=== PATIENT | female | born 1995 | race African-American/Black ===

== ENCOUNTER 2024-08-30 18:19 | Inpatient (IN) | payer OTHER, MEDICAID ==
[~2024-08-30] VITALS: Ht 154.9 cm; Wt 53.5 kg
--- NOTE | 2024-08-30 18:44 | ED.PDOC ---
History of Present Illness HPI Comments 28-year-old female brought in by EMS presents with an ALOC. Per EMS, patient was at a clinic when staff witnessed patient having "seizure-activity" and became altered. EMS reports that patient on arrival was altered and had carpal-pedal spasms. Patients initial blood glucose for EMS was 49 and patient was given 25g of Dextrose. Patients blood sugar on arrival is 156. Patient is A/Ox1. Chief Complaint: ALOC Time Seen by MD: 18:25 Reviewed Notes: Medications, Allergies Allergies: Coded Allergies: NO KNOWN ALLERGIES (Unverified , 08/30/24) Information Source: Emergency Med Personnel Mode of Arrival: EMS Severity: Moderate Timing: Hours Duration: Since onset Prehospital treatment: None Past Medical History PAST MEDICAL HISTORY: Denies Surgical History: Denies all surgeries TOP SPOTTER History: Denies all TOP SPOTTER Hx Family History Family History: Reviewed,noncontributory to illness Social History Smoker: Non-Smoker Alcohol: Denies ETOH Use Drugs: Denies Drug Use Lives In: Home Constitutional: denies: chills, diaphoresis, fatigue, fever, malaise, sweats, weakness, others EENTM: denies: blurred vision, double vision, ear bleeding, ear discharge, ear drainage, ear pain, ear ringing, eye pain, eye redness, hearing loss, mouth pain, mouth swelling, nasal discharge, nose bleeding, nose congestion, nose pain, photophobia, tearing, throat pain, throat swelling, voice changes, others Respiratory: denies: cough, hemoptysis, orthopnea, SOB at rest, shortness of breath, SOB with excertion, stridor, wheezing, others Cardiovascular: denies: chest pain, dizzy spells, diaphoresis, Dyspnea on exertion, edema, irregular heart beat, left arm pain, lightheadedness, palpitations, PND, syncope, others Gastrointestinal: denies: abdomen distended, abdominal pain, blood streaked bowels, constipated, diarrhea, dysphagia, difficulty swallowing, hematemesis, melena, nausea, poor appetite, poor fluid intake, rectal bleeding, rectal pain, vomiting, others Genitourinary: denies: abnormal vagina bleeding, burning, dyspareunia, dysuria, flank pain, frequency, hematuria, incontinence, pain, , vagina discharge, urgency, others Neurological: denies: dizziness, fainting, headache, left sided numbness, left sided weakness, numbness, paresthesia, pre-existing deficit, right sided n umbness, right sided weakness, seizure, speech problems, tingling, tremors, weakness, others Musculoskeletal: denies: back pain, gout, joint pain, joint swelling, muscle pain, muscle stiffness, neck pain, others Integumetry: denies: bruises, change in color, change in hair/nails, dryness, laceration, lesions, lumps, rash, wounds, others Allergic/Immunocompromised: denies: Difficulty Healing, Frequent Infections, Hives, Itching, others Hematologic/Lymphatic: denies: anemia, blood clots, easy bleeding, easy bruising, swollen glands, others Endocrine: denies: excessive hunger, excessive sweating, excessive thirst, excessive urination, flushing, intolerance to cold, intolerance to heat, unexplained weight gain, unexplained weight loss, others Psychiatric: denies: anxiety, bipolar disorder, depression, hopeless, panic disorder, schizophrenia, sleepless, suicidal, others Unable to Obtain due to: Altered Mental Status All Other Systems: Reviewed and Negative Physical Exam General Appearance: Moderate Distress, Normal HEENT: Normal ENT Inspection, Pharynx Normal, TMs Normal Neck: Full Range of Motion, Non-Tender, Normal, Normal Inspection Respiratory: Chest Non-Tender, Lungs Clear, No Accessory Muscle Use, No Respiratory Distress, Normal Breath Sounds Cardiovascular: No Edema, No JVD, No Murmur, No Gallop, Normal Peripheral Pulses, Regular Rate/Rhythm Breast Exam: Deferred Gastrointestinal: No Organomegaly, Non Tender, No Pulsatile Mass, Normal Bowel Sounds, Soft Genitalia: Deferred Pelvic: Deferred Rectal: Deferred Extremities: No calf tenderness, Normal capillary refill, Normal inspection, Normal range of motion, Non-tender, No pedal edema Musculoskeletal : Apperance: Normal Neurologic: Alert (Postictal), choke reamer II-XII nml as Tested, No Motor Deficits, Normal Affect, Normal Mood, No Sensory Deficits Cerebellar Function: Normal Reflexes: Normal Skin: Dry, Normal Color, Warm Lymphatic: No Adenopathy Was a procedure done? Was a procedure done?: No Differential Dx Considerations may include: Seizure disorder hypoglycemia electrolyte imbalance X-Ray, Labs, Meds, VS Vital Signs Date Time Temp Pulse Resp B/P (MAP) Pulse Ox O2 Delivery O2 Flow Rate FiO2 12/17/24 19:57 102 08/30/24 19:30 Room Air* 0 21 08/30/24 18:46 97.5 102 16 139/89 (106) 100 97.5 08/30/24 18:32 97.3 100 18 147/106 (120) 95 Lab Test 08/30/24 20:28 08/30/24 19:40 08/30/24 19:36 Range/Units POC Glucose 94 70-106 mg/dl White Blood Count 8.0 4.4-10.8 10^3/uL Red Blood Count 4.67 4.0-5.20 10^6/uL Hemoglobin 13.9 12.2-16.2 g/dL Hematocrit 41.9 36.0-46.0 % Mean Corpuscular Volume 89.7 80.0-100.0 fL Mean Corpuscular Hemoglobin 29.8 28.0-32.0 pg Mean Corpuscular Hemoglobin Concent 33.2 32.0-36.0 g/dL Red Cell Distribution Width 13.7 11.8-14.3 % Platelet Count 182 140-450 10^3/uL Mean Platelet Volume 11.0 H 6.9-10.8 fL Neutrophils (%) (Auto) 72.0 37.0-80.0 % Lymphocytes (%) (Auto) 19.0 10.0-50.0 % Monocytes (%) (Auto) 7.9 0.0-12.0 % Eosinophils (%) (Auto) 0.6 0.0-7.0 % Basophils (%) (Auto) 0.5 0.0-2.0 % Neutrophils # (Auto) 5.8 1.6-8.6 10 ^3/uL Lymphocytes # (Auto) 1.5 0.4-5.4 10 ^3/uL Monocytes # (Auto) 0.6 0-1.3 10 ^3/uL Eosinophils # (Auto) 0.1 0-0.8 10 ^3/uL Basophils # (Auto) 0 0-0.2 10 ^3/uL Nucleated Red Blood Cells 0.1 % Sodium Level 141 136-145 mmol/L Potassium Level 3.1 L 3.5-5.1 mmol/L Chloride Level 108 H 98-107 mmol/L Carbon Dioxide Level 21 20-31 mmol/L Anion Gap 12 5-15 Blood Urea Nitrogen 10 9-23 mg/dL Creatinine 0.99 0.550-1.02 mg/dL Glomerular Filtration Rate Calc 81 >90 mL/min BUN/Creatinine Ratio 10.1 10.0-20.0 Serum Glucose 153 H 74-106 mg/dL Calcium Level 9.9 8.7-10.4 mg/dL Total Bilirubin 0.5 0.2-1.0 mg/dL Aspartate Amino Transferase (AST) 13 13-40 U/L Alanine Aminotransferase (ALT) < 9 7-40 U/L Alkaline Phosphatase 61 46-116 U/L Total Protein 7.2 5.7-8.2 g/dL Albumin 4.5 3.2-4.8 g/dL Beta HCG, Quantitative 1.8 1.5-4.2 mIU/mL Plasma/Serum Blood Alcohol 7.9 <10 mg/dL Urine Color Colorless Yellow Urine Clarity Clear Clear Urine pH 6.5 5.0-9.0 Urine Specific [place] 1.007 1.001-1.035 Urine Protein Negative Negative Urine Ketones Negative Negative Urine Blood Negative Negative /uL Urine Nitrite Negative Negative Urine Bilirubin Negative Negative Urine Urobilinogen Normal Negative mg/dL Urine Leukocyte Esterase Trace Negative /uL Urine RBC <1 0 - 4 /hpf Urine WBC 1 0 - 5 /hpf Urine Squamous Epithelial Cells Few <5 /hpf Urine Bacteria Few H None Seen /hpf Urine Glucose 3+ H Normal mg/dL Urine Opiates Screen Neg NEGATIVE Urine Fentanyl Screen Neg NEGATIVE Urine Barbiturates Screen Neg NEGATIVE Urine Phencyclidine Screen Neg NEGATIVE Urine Amphetamines Screen Neg NEGATIVE Urine Benzodiazepines Screen Neg NEGATIVE Urine Cocaine Screen Neg NEGATIVE Urine Cannabinoids Screen Neg NEGATIVE CBC is normal. Last blood sugar is 94. UA is normal urine drug screen is normal. The patient his CT is pending. The patient will be admitted to the hospitalist for further evaluation and care. Time of 1ST Reevaluation: 18:55 Reevaluation 1ST: Unchanged Patient Education/Counseling: Diagnosis, Treatment, Prognosis Family Education/Counseling: No Family Present Departure 1 Departure Time of Disposition: 21:05 Impression: Primary Impression: Altered mental status Qualified Codes: R41.82 - Altered mental status, unspecified Additional Impressions: Metabolic encephalopathy Hypoglycemia Seizure Disposition: ADMITTED INPATIENT Admit to: Tele Condition: Guarded Critical Care Note Critical Care Time?: Yes (45 min-critical care time only) Stability Stability form required: No I personally scribed for STEPHANIE KHAN MD ([email or web address]) on 08/30/24 at 18:44. Electronically submitted by Chandra Ronquillo ([email or web address]). STEPHANIE KHAN MD Aug 30, 2024 18:44
[2024-08-30 20:03] LABS: Basophils # (auto) 0 10 ^3/uL (0-0.2); Basophils % (auto) 0.5 % (0.0-2.0); Eosinophils # (auto) 0.1 10 ^3/uL (0-0.8); Eosinophils % (auto) 0.6 % (0.0-7.0); Hematocrit 41.9 % (36.0-46.0); Hemoglobin 13.9 g/dL (12.2-16.2); Lymphocytes # (auto) 1.5 10 ^3/uL (0.4-5.4); Mean Corpuscular Hemoglobin 29.8 pg (28.0-32.0); Mean Corpuscular Hgb Conc. 33.2 g/dL (32.0-36.0); Mean Corpuscular Volume 89.7 fL (80.0-100.0); Monocytes # (auto) 0.6 10 ^3/uL (0-1.3); Monocytes % (auto) 7.9 % (0.0-12.0); Neutrophils # (auto) 5.8 10 ^3/uL (1.6-8.6); Nucleated Red Blood Cells % 0.1 %; Platelet Count (auto) 182 10^3/uL (140-450); Red Blood Cells 4.67 10^6/uL (4.0-5.20); Red Cell Distribution Width 13.7 % (11.8-14.3)
[2024-08-30 20:07] LABS: Urine Bacteria FEW /hpf (None Seen); Urine Blood Negative /uL (Negative); Urine Clarity Clear (Clear); Urine Color Colorless (Yellow); Urine Protein, UAD Negative (Negative); Urine Specific Gravity 1.007 (1.001-1.035); Urine Urobilinogen Normal (Negative); Urine WBC 1 /hpf (0 - 5); Urine pH 6.5 (5.0-9.0)
[2024-08-30 20:20] LABS: Albumin 4.5 g/dL (3.2-4.8); Alkaline Phosphatase 61 U/L (46-116); Anion Gap 12 (5-15); Aspartate Aminotransferase 13 U/L (13-40); BUN/Creatinine Ratio 10.1 (10.0-20.0); Blood Alcohol 7.9 mg/dL (<10); Blood Urea Nitrogen 10 mg/dL (9-23); Calcium 9.9 mg/dL (8.7-10.4); Carbon Dioxide 21 mmol/L (20-31); Sodium 141 mmol/L (136-145)
[2024-08-30 20:21] LABS: Bilirubin, Total 0.5 mg/dL (0.2-1.0); Total Protein 7.2 g/dL (5.7-8.2)
[2024-08-30 20:28] LABS: Amphetamine Screen, Urine Neg (NEGATIVE); Barbiturate Scree,Urine Neg (NEGATIVE); Benzodiazephine Screen, Urine Neg (NEGATIVE); Cannabinoid Screen, Urine Neg (NEGATIVE); Cocaine Screen, Urine Neg (NEGATIVE); Opiate Scree,Urine Neg (NEGATIVE); Phencyclidine Screen, Urine Neg (NEGATIVE)
[2024-08-30 20:28] LABS: Alanine Aminotransferase < 9 U/L (7-40); Chloride 108 mmol/L (98-107); Glucose 153 mg/dL (74-106); Potassium 3.1 mmol/L (3.5-5.1)
--- NOTE | 2024-08-30 21:02 | DVH ---
EXAM: CT HEAD WITHOUT CONTRAST HISTORY: sz COMPARISON: None TECHNIQUE: Axial images were obtained and reformatted in coronal and sagittal planes. All CT scans at this medical facility are performed using dose modulation techniques as appropriate t o a performed exam including the following: Automated exposure control was utilized; adjustment of th e MA and/or KV according to patient size; and use of iterative reconstruction technique. CT Dose: CTDI volume is 51.36 mGy. Dose-length product is 823.42 mGy*cm FINDINGS: Supratentorial Region: No evidence for large acute territorial ischemia. No intracranial hemorrhage is noted. Posterior Fossa: No acute abnormality. Brainstem: Unremarkable. Sellar/Suprasellar Region: Unremarkable. Ventricles, Cisterns, Sulci: Age-appropriate. Orbits: Unremarkable. Paranasal Sinuses: Small mucous retention cysts are seen in the bilateral maxillary sinuses. Mastoid Air Cells: Unremarkable. Vasculature: Unremarkable. Bones/Soft Tissues: No acute abnormality. Other: None. IMPRESSION: 1. No acute intracranial process.
[2024-08-30] MEDS: LORazepam 2MG/ML-1ML VIAL IV ONE (21:36)
[2024-08-30] MEDS: levETIRAcetam 1000 mg/100ml 100 ML IV ONE (21:36)
[2024-08-30] MEDS ORDERED: ACETAMINOPHEN 325 MG TAB PO PRN (22:00)
[2024-08-30] MEDS ORDERED: ONDANSETRON HCL 4 MG/2 ML VIAL IV PRN (22:00)
[2024-08-30] MEDS ORDERED: TEMAZEPAM 15 MG CAP PO PRN (22:00)
[2024-08-30] MEDS: POTASSIUM CHL 20 Meq TABLET PO ONE (22:32)
--- NOTE | 2024-08-30 23:21 | DVH ---
CHEST RADIOGRAPH Indication: SOB Technique: Single frontal view of the chest was obtained Comparison: None FINDINGS: Lines and Tubes: None Lungs: Clear Pleura: No effusion. No pneumothorax. Cardiomediastinal contours: Unremarkable Bones: Unremarkable IMPRESSION: 1. Clear lungs.
[2024-08-31] VITALS (8 sets, daily range): BP systolic 99–122; BP diastolic 61–80; PULSE 55–83; RESP 17–19; TEMP 98–98.6; O2SAT 98–100
--- NOTE | 2024-08-31 00:01 | DVHHP2 ---
History of Present Illness Reason for Visit: Altered mental status History of Present Illness 28-year-old female presents for evaluation of altered mental status. Patient initially presented to urgent care with complaints of having a cold x2 days. Per the patient's father patient began hyperventilating and her eyes rolled back. Patient became unresponsive. On the feel patient's blood sugar was noted to be 49. Currently the patient is alert oriented x3 that is slow to respond. Denies headache or blurred vision. No unilateral weakness. No shortness a breath. No other acute complaints reported. Past Medical History Denies Past Surgical History Denies Family History Noncontributory Smoke: No ALCOHOL: none Drugs: None Lives: with Family Review of Systems Review of Systems Review of systems are currently negative otherwise addressed in HPI. Allergies: Coded Allergies: NO KNOWN ALLERGIES (Unverified , 08/30/24) Medications Current Medications Medications Dose Ordered Sig/Mohan Route Start Time Stop Time Status Last Admin Dose Admin Temazepam 15 mg QHSP PRN PO 08/30/24 22:00 Ondansetron HCl 4 mg Q4HP PRN IV 08/30/24 22:00 Acetaminophen 650 mg Q6HP PRN PO 08/30/24 22:00 Exam Vital Signs Vital Signs Date Time Temp Pulse Resp B/P (MAP) Pulse Ox O2 Delivery O2 Flow Rate FiO2 08/30/24 22:00 88 17 113/76 (88) 99 08/30/24 20:00 98.7 98.7 08/30/24 19:30 Room Air* 0 21 Exam Gen: 28-year-old female in mild distress, lethargic Skin: Warm, dry, normal color and texture, no rash. HEENT: Normocephalic atraumatic, mucous membranes moist and pink. Neck: Cervical and supraclavicular nodes normal without enlargement, trachea is midline, thyroid gland is normal without masses. Pulmonary: Clear to auscultation and percussion bilaterally. Cardiac: Regular rate and rhythm. No murmur Abdomen: Soft, nontender, nondistended, bowel sounds present all 4 quadrants, no guarding, no rigidity, no organomegaly. Extremities: No cyanosis, clubbing, no edema Neuro: Cranial nerves II through XII grossly intact, normal affect and speech, no focal motor deficits. Labs/Xrays ORDERING PHYSICIAN: RITA REYES PROCEDURE(s): CXR1 - CHEST XRAY 1 VIEW REASON: SOB ORDER NUMBER(s): [id number], ACCESSION NUMBER(s): [id number] CHEST RADIOGRAPH Indication: SOB Technique: Single frontal view of the chest was obtained Comparison: None FINDINGS: Lines and Tubes: None Lungs: Clear Pleura: No effusion. No pneumothorax. Cardiomediastinal contours: Unremarkable Bones: Unremarkable IMPRESSION: 1. Clear lungs. RING PHYSICIAN: STEPHANIE KHAN MD PROCEDURE(s): HWOCT - HEAD WITHOUT CONTRAST REASON: sz ORDER NUMBER(s): [id number], ACCESSION NUMBER(s): [id number] EXAM: CT HEAD WITHOUT CONTRAST HISTORY: sz COMPARISON: None TECHNIQUE: Axial images were obtained and reformatted in coronal and sagittal planes. All CT scans at this medical facility are performed using dose modulation techniques as appropriate to a performed exam including the following: Automated exposure control was utilized; adjustment of the MA and/or KV according to patient size; and use of iterative reconstruction technique. CT Dose: CTDI volume is 51.36 mGy. Dose-length product is 823.42 mGy*cm FINDINGS: Supratentorial Region: No evidence for large acute territorial ischemia. No intracranial hemorrhage is noted. Posterior Fossa: No acute abnormality. Brainstem: Unremarkable. Sellar/Suprasellar Region: Unremarkable. Ventricles, Cisterns, Sulci: Age-appropriate. Orbits: Unremarkable. Paranasal Sinuses: Small mucous retention cysts are seen in the bilateral maxillary sinuses. Mastoid Air Cells: Unremarkable. Vasculature: Unremarkable. Bones/Soft Tissues: No acute abnormality. Other: None. IMPRESSION: 1. No acute intracranial process. Labs Test 08/30/24 20:28 08/30/24 19:40 08/30/24 19:36 Range/Units POC Glucose 94 70-106 mg/dl White Blood Count 8.0 4.4-10.8 10^3/uL Red Blood Count 4.67 4.0-5.20 10^6/uL Hemoglobin 13.9 12.2-16.2 g/dL Hematocrit 41.9 36.0-46.0 % Mean Corpuscular Volume 89.7 80.0-100.0 fL Mean Corpuscular Hemoglobin 29.8 28.0-32.0 pg Mean Corpuscular Hemoglobin Concent 33.2 32.0-36.0 g/dL Red Cell Distribution Width 13.7 11.8-14.3 % Platelet Count 182 140-450 10^3/uL Mean Platelet Volume 11.0 H 6.9-10.8 fL Neutrophils (%) (Auto) 72.0 37.0-80.0 % Lymphocytes (%) (Auto) 19.0 10.0-50.0 % Monocytes (%) (Auto) 7.9 0.0-12.0 % Eosinophils (%) (Auto) 0.6 0.0-7.0 % Basophils (%) (Auto) 0.5 0.0-2.0 % Neutrophils # (Auto) 5.8 1.6-8.6 10 ^3/uL Lymphocytes # (Auto) 1.5 0.4-5.4 10 ^3/uL Monocytes # (Auto) 0.6 0-1.3 10 ^3/uL Eosinophils # (Auto) 0.1 0-0.8 10 ^3/uL Basophils # (Auto) 0 0-0.2 10 ^3/uL Nucleated Red Blood Cells 0.1 % Sodium Level 141 136-145 mmol/L Potassium Level 3.1 L 3.5-5.1 mmol/L Chloride Level 108 H 98-107 mmol/L Carbon Dioxide Level 21 20-31 mmol/L Anion Gap 12 5-15 Blood Urea Nitrogen 10 9-23 mg/dL Creatinine 0.99 0.550-1.02 mg/dL Glomerular Filtration Rate Calc 81 >90 mL/min BUN/Creatinine Ratio 10.1 10.0-20.0 Serum Glucose 153 H 74-106 mg/dL Calcium Level 9.9 8.7-10.4 mg/dL Total Bilirubin 0.5 0.2-1.0 mg/dL Aspartate Amino Transferase (AST) 13 13-40 U/L Alanine Aminotransferase (ALT) < 9 7-40 U/L Alkaline Phosphatase 61 46-116 U/L Total Protein 7.2 5.7-8.2 g/dL Albumin 4.5 3.2-4.8 g/dL Beta HCG, Quantitative 1.8 1.5-4.2 mIU/mL Plasma/Serum Blood Alcohol 7.9 <10 mg/dL Urine Color Colorless Yellow Urine Clarity Clear Clear Urine pH 6.5 5.0-9.0 Urine Specific [place] 1.007 1.001-1.035 Urine Protein Negative Negative Urine Ketones Negative Negative Urine Blood Negative Negative /uL Urine Nitrite Negative Negative Urine Bilirubin Negative Negative Urine Urobilinogen Normal Negative mg/dL Urine Leukocyte Esterase Trace Negative /uL Urine RBC <1 0 - 4 /hpf Urine WBC 1 0 - 5 /hpf Urine Squamous Epithelial Cells Few <5 /hpf Urine Bacteria Few H None Seen /hpf Urine Glucose 3+ H Normal mg/dL Urine Opiates Screen Neg NEGATIVE Urine Fentanyl Screen Neg NEGATIVE Urine Barbiturates Screen Neg NEGATIVE Urine Phencyclidine Screen Neg NEGATIVE Urine Amphetamines Screen Neg NEGATIVE Urine Benzodiazepines Screen Neg NEGATIVE Urine Cocaine Screen Neg NEGATIVE Urine Cannabinoids Screen Neg NEGATIVE Assessment/Plan Assessment/Plan Assessment Altered mental status ? Seizure activity Hypokalemia Plan Admit the patient to [facility] to the hospitalist Seizure precautions Nephrology consultation MRI of the brain pending Continue treatment per orders. Plan discussed with: Patient My Orders Orders - RITA REYES Procedure Category Date Status Time * Neurology Consult CONS 08/30/24 Transmitted 21:55 Brain Head Wo Contrast MRI 08/30/24 Logged 21:55 Seizure Precautions MAO 08/30/[address] 21:55 Basic Metabolic Panel LAB 08/31/24 Verified 04:00 Admit ADMIT 08/30/24 Transmitted 21:55 Temazepam (Restoril) PHA 08/30/24 In Process 22:00 Ondansetron Hcl PHA 08/30/24 In Process (Zofran) 22:00 Condition: Stable MAO 08/30/24 In Process 21:55 Acetaminophen Tablet PHA 08/30/24 In Process (Tylenol Tablet) 22:00 Bedrest With Bathroom MAO 08/30/24 In Process Privileg 21:55 Regular Diet DIET 08/31/24 Transmitted Breakfast Covid19 Antigen [facility] LAB 08/30/24 Logged Rapid Influenza A&B LAB 08/30/24 Logged 22:57 Chest Xray 1 View XY 08/30/24 Resulted 22:57 Date of Service: Aug 30, 2024 Billing Provider: RITA REYES Common Visit Codes: [id number] INP/OBS CARE (MOD) RITA REYES Aug 31, 2024 00:01
[2024-08-31 07:53] LABS: Potassium 4.2 mmol/L (3.5-5.1); Sodium 144 mmol/L (136-145)
[2024-08-31 07:54] LABS: Anion Gap 6 (5-15); Calcium 9.5 mg/dL (8.7-10.4); Carbon Dioxide 26 mmol/L (20-31)
[2024-08-31 07:59] LABS: Chloride 112 mmol/L (98-107); Glucose 82 mg/dL (74-106)
[2024-08-31 08:06] LABS: Blood Urea Nitrogen 9 mg/dL (9-23)
--- NOTE | 2024-08-31 08:43 | DVH ---
EXAMINATION: MRI BRAIN HEAD WO CONTRAST INDICATION: seizure COMPARISON: CT HEAD WITHOUT CONTRAST on DOS: 08/30/24 TECHNIQUE: Multiplanar, multisequence magnetic resonance imaging of the brain was performed without the use of i ntravenous contrast. FINDINGS: No evidence of acute or remote infarct. No intracranial hemorrhage. No mass effect. The ventricles and sulci are normal in size for age. Clear basal cisterns. Flow voids in the major intracranial vessels are maintained. No abnormality of the orbits. Left maxillary sinus mucous retention cyst. Otherwise, the sinuses and mastoid air cells are clear. No abnormality of the visualized osseous structures and extracranial soft tissues. IMPRESSION: 1. No acute infarct, intracranial hemorrhage, mass effect, or hydrocephalus. HS:Y
[2024-08-31] MEDS ORDERED: levETIRAcetam 500 MG TAB PO SCH (10:00)
--- NOTE | 2024-08-31 10:22 | DVHINCON2 ---
Date of service: Aug 31, 2024 Referring Physician Sergo Reason for Consultation Seizure History of Present Illness Ms. Salgado is a 28 years old right-handed female otherwise healthy, she came to the hospital on 08/30/2024 with a chief company of [employer] and seizure activity. At this time, she is alert and fully oriented, she provided the following history On 08/30 24, she developed cold, and which caused chest pain, when she was in a urgent care center, she developed palpitation, shortness breath, and then she had spasms in the hands, but the patient was claims she remembers the majority of since happened around time, she was able to hear people talking as well. She believes it was not a seizure, according to ER note, the patient was had carpal pedal spasm in the low glucose, 49, he was also mentally altered Several years ago, when she was a college student, she went to a [employer] for competition, where she developed dizziness, and she blacked out, and she could not hear her surroundings, however she did not fall, and when she came off the event, she was able to continue ongoing activity right away. The secondary after she returned to [place], she had lightheadedness and passed out at school, however she was able to hear people talking, he was sent to the local hospital, where she could not walk for three days UDS, 08/30/2024: Negative Plasma alcohol, 08/30/2024: 7.9 Urinalysis, 08/30/2024: Unremarkable CBC, 08/30/2024: Unremarkable CMP, 08/30/2024: Unremarkable Calcium, 08/30/2024: 9.9 MR headache, 08/29/2024: No acute infarct, intracranial hemorrhage, mass effect, or hydrocephalus Past Medical History None Past Surgical History None Family History: Hypertension G8 MOTHER G8 FATHER Family History Hypertension, diabetes Social History She is not tobacco smoker, no history of alcohol or recreational substance abuse Allergies: Coded Allergies: NO KNOWN ALLERGIES (Unverified , 08/30/24) Home Meds No Active Prescriptions or Reported Meds Current Medications Current Medications Medications (Trade) Dose Ordered Sig/Mohan Route PRN Reason Start Time Stop Time Status Last Admin Levetiracetam (Keppra Tablet) 500 mg BID PO 08/31/24 10:00 08/30/24 22:31 DC Temazepam (Restoril) 15 mg QHSP PRN PO FOR INSOMNIA 08/30/24 22:00 Ondansetron HCl (Zofran) 4 mg Q4HP PRN IV NAUSEA / VOMITING 08/30/24 22:00 Acetaminophen (Tylenol Tablet) 650 mg Q6HP PRN PO PAIN SCALE 1-3 OR TEMP>100.4 08/30/24 22:00 Review of Systems As above, the other systems are negative Vital Signs Vital Signs Date Time Temp Pulse Resp B/P (MAP) Pulse Ox O2 Delivery O2 Flow Rate FiO2 08/31/24 08:36 98.1 55 19 122/75 (91) 100 98.1 08/30/24 23:59 Room Air* 0 21 Physical Exam GENERAL EXAM: General: the patient is well developed and nourished. No acute distress. HEENT: Normocephalic, neck is supple, no carotid bruits. No mass. RESPIRATORY: Normal respiratory effort with symmetrical lung expansion. Lungs clear to auscultation. CARDIOVASCULAR: Regular rate and rhythm with no murmurs. S1, S2. ABDOMEN: Soft, nontender, normal bowel sound NEUROLOGICAL: MENTAL STATUS: Awake and alert. Oriented to person, place, time and general circumstances. Able to give personal history. SPEECH, LANGUAGE, HIGHER CORTICAL FUNCTION: no aphasia or dysathria. CRANIAL NERVES: #2: Intact visual rojas to confrontation. The optic discs were sharp. #3,4,6: Pupils are equal, round and reactive. EOMs full and conjugate. #5: Facial sensation intact in all three divisions bilaterally. Mandibular strength intact. #7: Facial muscles symmetrical and strength intact. #8: Hearing grossly normal to voice. #9,10: Uvula and soft palate rise in the midline. Swallow and voice are normal. #11: Trapezius and sternomastoid strength intact bilaterally. #12: Tongue midline. No fasciculations or atrophy. SENSATION: Sensation to touch and pinprick is normal. MOTOR: Normal tone in the upper and lower extremity. Normal muscle bulk. No fasciculations. No abnormal movements or posturing. Muscle strength of the major groups in the upper extremities is 5/5. Muscle strength of the major groups in the lower extremities is 5/5. REFLEXES: Deep tendon reflexes are symmetrical. No pathological reflexes. CEREBELLAR/COORDINATION: Finger to nose is normal bilaterally. GAIT/STATION: deferred Labs/Diagnostic Data Labs Test 08/31/24 06:33 08/31/24 06:27 08/30/24 19:40 08/30/24 19:36 Range/Units Sodium Level 144 136-145 mmol/L Potassium Level 4.2 3.5-5.1 mmol/L Chloride Level 112 H 98-107 mmol/L Carbon Dioxide Level 26 20-31 mmol/L Anion Gap 6 5-15 Blood Urea Nitrogen 9 9-23 mg/dL Creatinine 0.90 0.550-1.02 mg/dL Glomerular Filtration Rate Calc 90 >90 mL/min BUN/Creatinine Ratio 10.0 10.0-20.0 Serum Glucose 82 74-106 mg/dL Calcium Level 9.5 8.7-10.4 mg/dL POC Glucose 88 70-106 mg/dl White Blood Count 8.0 4.4-10.8 10^3/uL Red Blood Count 4.67 4.0-5.20 10^6/uL Hemoglobin 13.9 12.2-16.2 g/dL Hematocrit 41.9 36.0-46.0 % Mean Corpuscular Volume 89.7 80.0-100.0 fL Mean Corpuscular Hemoglobin 29.8 28.0-32.0 pg Mean Corpuscular Hemoglobin Concent 33.2 32.0-36.0 g/dL Red Cell Distribution Width 13.7 11.8-14.3 % Platelet Count 182 140-450 10^3/uL Mean Platelet Volume 11.0 H 6.9-10.8 fL Neutrophils (%) (Auto) 72.0 37.0-80.0 % Lymphocytes (%) (Auto) 19.0 10.0-50.0 % Monocytes (%) (Auto) 7.9 0.0-12.0 % Eosinophils (%) (Auto) 0.6 0.0-7.0 % Basophils (%) (Auto) 0.5 0.0-2.0 % Neutrophils # (Auto) 5.8 1.6-8.6 10 ^3/uL Lymphocytes # (Auto) 1.5 0.4-5.4 10 ^3/uL Monocytes # (Auto) 0.6 0-1.3 10 ^3/uL Eosinophils # (Auto) 0.1 0-0.8 10 ^3/uL Basophils # (Auto) 0 0-0.2 10 ^3/uL Nucleated Red Blood Cells 0.1 % Total Bilirubin 0.5 0.2-1.0 mg/dL Aspartate Amino Transferase (AST) 13 13-40 U/L Alanine Aminotransferase (ALT) < 9 7-40 U/L Alkaline Phosphatase 61 46-116 U/L Total Protein 7.2 5.7-8.2 g/dL Albumin 4.5 3.2-4.8 g/dL Beta HCG, Quantitative 1.8 1.5-4.2 mIU/mL Plasma/Serum Blood Alcohol 7.9 <10 mg/dL Urine Color Colorless Yellow Urine Clarity Clear Clear Urine pH 6.5 5.0-9.0 Urine Specific [place] 1.007 1.001-1.035 Urine Protein Negative Negative Urine Ketones Negative Negative Urine Blood Negative Negative /uL Urine Nitrite Negative Negative Urine Bilirubin Negative Negative Urine Urobilinogen Normal Negative mg/dL Urine Leukocyte Esterase Trace Negative /uL Urine RBC <1 0 - 4 /hpf Urine WBC 1 0 - 5 /hpf Urine Squamous Epithelial Cells Few <5 /hpf Urine Bacteria Few H None Seen /hpf Urine Glucose 3+ H Normal mg/dL Urine Opiates Screen Neg NEGATIVE Urine Fentanyl Screen Neg NEGATIVE Urine Barbiturates Screen Neg NEGATIVE Urine Phencyclidine Screen Neg NEGATIVE Urine Amphetamines Screen Neg NEGATIVE Urine Benzodiazepines Screen Neg NEGATIVE Urine Cocaine Screen Neg NEGATIVE Urine Cannabinoids Screen Neg NEGATIVE Assessment Seizure-like activity on 08/30/2024 Likely nonepileptic in nature Possibly caused by hyperventilation and the psychogenic issues Blacking out events in her college with following gait disturbance Possibly psychogenic in nature Plan/Recommendation Monitoring Supportive treatment Telemetry EEG No preventive seizure treatment Cardiology evaluation More recommendation per clinical course Progress: Poor This medical document was created using an electronic medical record system with [employer] dictation system. Although this document has been carefully reviewed, there may still be some phonetic and typographical errors. These areas are purely typographical due to imperfections of the software programs, and do not reflect any compromise in the patient's medical care. Plan discussed with: Patient, Other AUDRA FELIZ MD Aug 31, 2024 10:22
--- NOTE | 2024-08-31 16:25 | DVHPN2 ---
Subjective Patient denies any symptoms at this time. Reviewed: Care Plan, H&P, Labs, Medications Changes from previous H/P or p: No Changes General: Per HPI Objective Vitals Vital Signs Date Time Temp Pulse Resp B/P (MAP) Pulse Ox O2 Delivery O2 Flow Rate FiO2 08/31/24 13:00 98.1 78 17 99/61 (74) 100 98.1 08/31/24 08:00 Room Air* 0 21 Intake/Output Intake and Output 08/31/24 07:00 Intake Total 400 ml Balance 400 ml Intake IV Total 400 ml # Voids 1 General Appearance: Alert, Oriented X3, Cooperative, No acute distress HEENT: Atraumatic, PERRLA Lungs: Clear to auscultation, Normal air movement Cardiovascular: Normal S1, Normal S2 Abdomen: Normal bowel sounds Musculoskeletal: Normal sensory function, Normal motor function Neuro: Normal gait, Normal speech Psych/Mental Status: Mental status NL, Mood NL Medications Current Medications Medications Dose Ordered Sig/Mohan Route Start Time Stop Time Status Last Admin Dose Admin Temazepam 15 mg QHSP PRN PO 08/30/24 22:00 Ondansetron HCl 4 mg Q4HP PRN IV 08/30/24 22:00 Acetaminophen 650 mg Q6HP PRN PO 08/30/24 22:00 Laboratory Results Laboratory Tests 08/30/24 19:40 08/31/24 06:33 Chemistry Test 08/30/24 19:40 08/31/24 06:33 Albumin 4.5 g/dL (3.2-4.8) Calcium Level 9.9 mg/dL (8.7-10.4) 9.5 mg/dL (8.7-10.4) Total Protein 7.2 g/dL (5.7-8.2) LFT Test 08/30/24 19:40 Alanine Aminotransferase (ALT) < 9 U/L (7-40) Alkaline Phosphatase 61 U/L (46-116) Aspartate Amino Transferase (AST) 13 U/L (13-40) Total Bilirubin 0.5 mg/dL (0.2-1.0) Urinalysis Test 08/30/24 19:36 Urine Color Colorless (Yellow) Urine Clarity Clear (Clear) Urine pH 6.5 (5.0-9.0) Urine Specific [place] 1.007 (1.001-1.035) Urine Protein Negative (Negative) Urine Ketones Negative (Negative) Urine Blood Negative /uL (Negative) Urine Nitrite Negative (Negative) Urine Bilirubin Negative (Negative) Urine Urobilinogen Normal mg/dL (Negative) Urine Leukocyte Esterase Trace /uL (Negative) Urine RBC <1 /hpf (0 - 4) Urine WBC 1 /hpf (0 - 5) Urine Squamous Epithelial Cells Few /hpf (<5) Urine Bacteria Few /hpf (None Seen) H Urine Glucose 3+ mg/dL (Normal) H Labs and/or images reviewed: Labs reviewed by me, Image(s) reviewed by me Assessment/Plan Assessment/Plan Impression: -questionable seizure activity -probable syncope with collapse -rule out cardiac dysrhythmia -hypoglycemia Plan: -discussion was made with the patient regarding her symptoms. Apparently, she did report having increased heart rate prior to her episode of altered mental status. Patient reports that she has a history of heart murmur. Patient also reports that she had questionable fainting episode in the past as well.- echocardiogram -neurology consultation -cardiology consultation -place patient on telemetry monitoring -long discussion made with patient and mother was bedside. At this time it was felt that she needs to have further cardiac workup, possible discharge with event monitoring given the likelihood of syncope secondary to cardiac dysrhythmia. Patient wants to leave. At this time I recommend all cardiac workup be done prior to the patient being discharged. She verbalized understanding. Total time spent with patient discussing and formulating plan of care: 35 minutes. This medical document was created using an electronic medical record system with [employer] dictation system. Although this document has been carefully reviewed, there may still be some phonetic and typographical errors. These areas are purely typographical due to imperfections of the software programs, and do not reflect any compromise in the patient's medical care. Plan discussed with: Patient, Other (RN) My Orders Orders - MARIALUISA DOMINGO NP Procedure Category Date Status Time Echo 2d Mode Cardiac US 08/31/24 Logged DOP 15:26 Transfer Orders XFER 08/31/24 Transmitted 15:26 * Cardiology Consult CONS 08/31/24 Transmitted 15:26 Date of Service: Aug 31, 2024 Billing Provider: MARIALUISA DOMINGO NP Common Visit Codes: [id number] INP/OBS CARE(HIGH) MARIALUISA DOMINGO NP Aug 31, 2024 16:25
--- NOTE | 2024-08-31 17:51 | DVHSR ---
APPROVED REPORT EXAM: Two-dimensional and M-mode echocardiogram with Doppler, color Doppler and Bubble Study. Blood Pressure: 99/61 mmHg INDICATION syncope, ? murmur RISK FACTORS Height: 5'1, Weight: 113 DIMENSIONS LVDd4.0 (3.8-5.7cm)LA (2D)2.9 (1.9-4.0cm)Aortic Root3.0 (2.0-3.7cm) LVDs3.0 (2.5-4.0cm)LA (MM) (1.9-4.0cm)Aortic Cusp Exc2.0 (1.5-2.0cm) EF (%) 55.0 (55-70%)Rt. Atrium3.3 (1.9-4.0cm)Asc. Aorta cm IVSd0.7 (0.7-1.1cm)RV (D) (1.8-2.4cm) PWd0.7 (0.7-1.1cm) Mitral Valve MitralMitral Stenosis E wave0.71m/sMV Mean GR.mmHg A wave0.43m/sMV Peak GR.mmHg E/A ratio1.72D MVAcm2 DECEL [id number] 1/2 [place] Aortic Valve Aortic ValveAortic Stenosis V10.87m/Thong Mean GR.2mmHg V20.97m/Thong Peak GR.4mmHg LVOT Diameter1.9 (1.8-2.4cm)Doppler AVA2.54cm2 Tricuspid Valve TR Velocity2.01m/s [id number] Conclusion Normal left ventricular size and dimension. Normal left ventricular systolic function estimated ejec tion fraction 55%. Normal diastolic function. Normal right ventricular size and dimension. Normal right ventricular systolic function. Normal biatrial size and dimension. Normal aortic valve structure and function. Normal mitral valve structure and function. Normal tricuspid valve structure and function. The pulmonary valve is grossly normal. No pericardial effusion.
[2024-09-01] VITALS (7 sets, daily range): BP systolic 104–122; BP diastolic 60–80; PULSE 58–89; RESP 14–18; TEMP 97.4–98; O2SAT 97–100
--- NOTE | 2024-09-01 11:03 | DVHPN2 ---
Progress Note - Dictate Date Seen: Sep 01, 2024 Medical Necessity Reason Pt with a Central, PICC or Fol: No Subjective Ms. Salgado is a 28 years old right-handed female otherwise healthy, she came to the hospital on 08/30/2024 with a chief company of [employer] and seizure activity. I have seen and examined the patient, she was doing fine, no new complaints Again she denies a history of cardiac disease, anxiety, depression The case has been discussed with Geovanni SUTTON, 08/30/2024: Negative Plasma alcohol, 08/30/2024: 7.9 Urinalysis, 08/30/2024: Unremarkable CBC, 08/30/2024: Unremarkable CMP, 08/30/2024: Unremarkable Calcium, 08/30/2024: 9.9 2D echo, 08/31/2024: Normal left ventricular size and dimension. Normal left ventricular systolic function estimated ejection fraction 55%. Normal diastolic function. Normal right ventricular size and dimension. Normal right ventricular systolic function. Normal biatrial size and dimension. Normal aortic valve structure and function. Normal mitral valve structure and function. Normal tricuspid valve structure and function. The pulmonary valve is grossly normal. No pericardial effusion. MR headache, 08/29/2024: No acute infarct, intracranial hemorrhage, mass effect, or hydrocephalus vital signs Vital Sign Date Time Temp Pulse Resp B/P (MAP) Pulse Ox O2 Delivery O2 Flow Rate FiO2 09/01/24 09:00 98.0 80 14 104/70 (81) 99 98.0 08/31/24 20:00 Room Air* 0 21 Total Intake and Output 08/31/24 08/31/24 09/01/24 15:00 23:00 07:00 Intake Total 650 ml Balance 650 ml medications Current Medications Medications Dose Ordered Sig/Mohan Route Start Time Stop Time Status Last Admin Dose Admin Temazepam 15 mg QHSP PRN PO 08/30/24 22:00 Ondansetron HCl 4 mg Q4HP PRN IV 08/30/24 22:00 Acetaminophen 650 mg Q6HP PRN PO 08/30/24 22:00 objective General: the patient is well developed and nourished. No acute distress. MENTAL STATUS: Awake and alert. Oriented to person, place, time and general circumstances. Able to give personal history. SPEECH, LANGUAGE, HIGHER CORTICAL FUNCTION: no aphasia or dysathria. CRANIAL NERVES: Pupils are equal, round and reactive. EOMs full and conjugate. Facial sensation intact in all three divisions bilaterally. Mandibular strength intact. Facial muscles symmetrical and strength intact. SENSATION: Sensation to touch and pinprick is normal. MOTOR: Normal tone in the upper and lower extremity. Normal muscle bulk. No fasciculations. No abnormal movements or posturing. Muscle strength of the major groups in the extremities is 5/5. REFLEXES: Deep tendon reflexes are symmetrical. No pathological reflexes. CEREBELLAR/COORDINATION: Finger to nose is normal bilaterally. GAIT/STATION: deferred laboratory and microbiology Laboratory Tests 08/31/24 06:33 08/30/24 19:40 Test 08/31/24 06:33 Range/Units Serum Glucose 82 74-106 mg/dL Problem List Seizure-like activity on 08/30/2024 Nonepileptic in nature Possibly caused by hyperventilation and the psychogenic issues Rule out cardiac etiology Blacking out events in her college with following gait disturbance Possibly psychogenic in nature Rule out Cardiology etiology Assessment/Plan Monitoring Supportive treatment Telemetry EEG No preventive seizure treatment Cardiology evaluation Need long-term cardiac event monitoring if the hospital evaluation come back negative/nonocclusive More recommendation per clinical course This medical document was created using an electronic medical record system with [employer] computerized dictation system. Although this document has been carefully reviewed, there may still be some phonetic and typographical errors. These areas are purely typographical due to imperfections of the software programs, and do not reflect any compromise in the patient's medical care. Prognosis poor Plan discussed with: Patient, Other Total Time (mins): 40 AUDRA FELIZ MD Sep 01, 2024 11:03
--- NOTE | 2024-09-01 11:15 | DVHINCON2 ---
Date Seen: Sep 01, 2024 Referring Physician MARTY Sanford Reason for Consultation Questionable syncope, questionable murmur, questionable cardiac arrhythmias History of Present Illness This is a 28-year-old female patient who presents to the emergency room with chief complaint of ALOC. The patient reports that initially she went to urgent care for cold symptoms such as congestion, cough, and chest pain. She reports that she began experiencing chest pain after cold symptoms started about three days ago. She describes the chest pain as provoked by cough, burning in nature, left and right-sided and nonradiating. She reports that she was seen at urgent care when suddenly she started feeling palpitations and fluttering in her chest. She also describes a near syncopal episode while getting her blood drawn in which she states she did not lose consciousness but her eyes were closed and she reports that she was in a unable to verbalize anything but heard everything going on around her. Per notes, patient had seizure-like activity witnessed by staff. Patient denies any previous history of seizures. Of note, the patient was also noted to be hypoglycemic with a blood sugar of 49 at that time. She was brought to the emergency room for further evaluation. There was no initial twelve lead electrocardiogram obtained in the emergency room. Reviewed utilities and maintenance supervisor, patient in normal sinus rhythm no ectopy. Of note, patient h as periods of sinus tachycardia with rate reaching as high as 130s. Significant past medical history includes asthma. The patient denies taking any medications at home. Past Medical History Past medical history reviewed. No other significant than mentioned above. Past Surgical History Denies all previous surgeries Family History: Hypertension G8 MOTHER G8 FATHER Family History Family history reviewed. Social History Denies the use of tobacco, alcohol or illicit drugs. Allergies: Coded Allergies: NO KNOWN ALLERGIES (Unverified , 08/30/24) Home Meds No Active Prescriptions or Reported Meds Home Meds Denies taking any prescribed medications Review of Systems Constitutional: No symptom reported Ears, Nose, & Throat: No symptom reported Eyes: No symptom reported Neurological: ALOC, syncope Pulmonary/Respiratory: Cough Cardiovascular: Chest pain, palpitations, fluttering Gastrointestinal: No symptom reported Genitourinary: No symptom reported Musculoskeletal: No symptom reported Skin: No symptom reported Psychiatric: No symptom reported Endocrine: No symptom reported Hematologic/Lymphatic: No symptom reported Vital Signs Vital Signs Date Time Temp Pulse Resp B/P (MAP) Pulse Ox O2 Delivery O2 Flow Rate FiO2 09/01/24 09:00 98.0 80 14 104/70 (81) 99 98.0 08/31/24 20:00 Room Air* 0 21 Physical Exam General Appearance: Cooperative. Thin Pulmonary/Respiratory: Clear, bilateral breaths sounds. Cardiovascular/Chest: Regular rate and rhythm Peripheral Pulses: 2+ Radial (R). 2+ Radial (L). 2+ Pedal (R). 2+ Pedal (L) Abdominal Exam: Normal bowel sounds. Ankle Exam: Negative ankle edema Lower extremities: Negative lower extremity edema Neuro/Mental Status: A/OX4, coherent. Thoughts/Psych: Flat affect Appearance: No acute distress. Skin Exam: Normal inspection. Normal color. Warm and dry. Labs/Diagnostic Data Labs Test 08/31/24 06:33 08/31/24 06:27 08/30/24 19:40 08/30/24 19:36 Range/Units Sodium Level 144 136-145 mmol/L Potassium Level 4.2 3.5-5.1 mmol/L Chloride Level 112 H 98-107 mmol/L Carbon Dioxide Level 26 20-31 mmol/L Anion Gap 6 5-15 Blood Urea Nitrogen 9 9-23 mg/dL Creatinine 0.90 0.550-1.02 mg/dL Glomerular Filtration Rate Calc 90 >90 mL/min BUN/Creatinine Ratio 10.0 10.0-20.0 Serum Glucose 82 74-106 mg/dL Calcium Level 9.5 8.7-10.4 mg/dL POC Glucose 88 70-106 mg/dl White Blood Count 8.0 4.4-10.8 10^3/uL Red Blood Count 4.67 4.0-5.20 10^6/uL Hemoglobin 13.9 12.2-16.2 g/dL Hematocrit 41.9 36.0-46.0 % Mean Corpuscular Volume 89.7 80.0-100.0 fL Mean Corpuscular Hemoglobin 29.8 28.0-32.0 pg Mean Corpuscular Hemoglobin Concent 33.2 32.0-36.0 g/dL Red Cell Distribution Width 13.7 11.8-14.3 % Platelet Count 182 140-450 10^3/uL Mean Platelet Volume 11.0 H 6.9-10.8 fL Neutrophils (%) (Auto) 72.0 37.0-80.0 % Lymphocytes (%) (Auto) 19.0 10.0-50.0 % Monocytes (%) (Auto) 7.9 0.0-12.0 % Eosinophils (%) (Auto) 0.6 0.0-7.0 % Basophils (%) (Auto) 0.5 0.0-2.0 % Neutrophils # (Auto) 5.8 1.6-8.6 10 ^3/uL Lymphocytes # (Auto) 1.5 0.4-5.4 10 ^3/uL Monocytes # (Auto) 0.6 0-1.3 10 ^3/uL Eosinophils # (Auto) 0.1 0-0.8 10 ^3/uL Basophils # (Auto) 0 0-0.2 10 ^3/uL Nucleated Red Blood Cells 0.1 % Total Bilirubin 0.5 0.2-1.0 mg/dL Aspartate Amino Transferase (AST) 13 13-40 U/L Alanine Aminotransferase (ALT) < 9 7-40 U/L Alkaline Phosphatase 61 46-116 U/L Total Protein 7.2 5.7-8.2 g/dL Albumin 4.5 3.2-4.8 g/dL Beta HCG, Quantitative 1.8 1.5-4.2 mIU/mL Plasma/Serum Blood Alcohol 7.9 <10 mg/dL Urine Color Colorless Yellow Urine Clarity Clear Clear Urine pH 6.5 5.0-9.0 Urine Specific [place] 1.007 1.001-1.035 Urine Protein Negative Negative Urine Ketones Negative Negative Urine Blood Negative Negative /uL Urine Nitrite Negative Negative Urine Bilirubin Negative Negative Urine Urobilinogen Normal Negative mg/dL Urine Leukocyte Esterase Trace Negative /uL Urine RBC <1 0 - 4 /hpf Urine WBC 1 0 - 5 /hpf Urine Squamous Epithelial Cells Few <5 /hpf Urine Bacteria Few H None Seen /hpf Urine Glucose 3+ H Normal mg/dL Urine Opiates Screen Neg NEGATIVE Urine Fentanyl Screen Neg NEGATIVE Urine Barbiturates Screen Neg NEGATIVE Urine Phencyclidine Screen Neg NEGATIVE Urine Amphetamines Screen Neg NEGATIVE Urine Benzodiazepines Screen Neg NEGATIVE Urine Cocaine Screen Neg NEGATIVE Urine Cannabinoids Screen Neg NEGATIVE Assessment Rule out cardiac arrhythmia Possible syncopal episode ?Seizure Noncardiac pleuritic chest pain Hypoglycemia Plan/Recommendation (Dr. Sierra): Transthoracic echocardiogram reveals an EF of 55%. Patient has been on continuous telemetry monitoring, no ectopy or cardiac dysrhythmias noted. Jessica browning does have intermittent episodes of sinus tachycardia. Imaging unremarkable. No further inpatient cardiac workup warranted at this time. We will recommend for the patient to obtain a cardiac event monitor in the outpatient setting. Patient to follow up with Cardiology in the outpatient setting in 1-2 weeks post discharge. Thank you for allowing us to care for this patient. Please call with any questions or concerns. Critical care time spent: 38 minutes This medical document was created using an electronic medical record system with voice recognition software and computerized dictation system. Although this document has been carefully reviewed, there might still be some phonetic and typographical errors. Occasional wrong-word or ``sound-alike substitutions may have occurred due to the inherent limitations of voice recognition software. These areas are purely typographical due to imperfections of the software programs and do not reflect any compromise in the patient's medical care. Please read the chart carefully and recognize, using context, where these substitutions have occurred. Plan discussed with: Patient Date of Service: Sep 01, 2024 Billing Provider: JOSÉ LUIS SIERRA MD Cardiology Common Codes: 78773-DBUYSCZ INP/OBS CARE (High) Cardiology Consultation Codes: [id number] CONSULT <45MIN MERCEDEZ HUDSON Sep 01, 2024 11:14
--- NOTE | 2024-09-01 11:51 | DVHDS2 ---
Discharge Summary Date of Admission Aug 30, 2024 at 21:55 Date of Discharge: Sep 01, 2024 Admitting Diagnosis Altered mental status Labs/Diagnostic Data: Laboratory Results Test 08/31/24 06:33 08/31/24 06:27 08/30/24 19:40 08/30/24 19:36 Sodium Level 144 mmol/L (136-145) Potassium Level 4.2 mmol/L (3.5-5.1) Chloride Level 112 mmol/L (98-107) Carbon Dioxide Level 26 mmol/L (20-31) Anion Gap 6 (5-15) Blood Urea Nitrogen 9 mg/dL (9-23) Creatinine 0.90 mg/dL (0.550-1.02) Glomerular Filtration Rate Calc 90 mL/min (>90) BUN/Creatinine Ratio 10.0 (10.0-20.0) Serum Glucose 82 mg/dL (74-106) Calcium Level 9.5 mg/dL (8.7-10.4) Thyroid Stimulating Hormone (TSH) 1.56 uIU/mL (0.55-4.78) POC Glucose 88 mg/dl (70-106) White Blood Count 8.0 10^3/uL (4.4-10.8) Red Blood Count 4.67 10^6/uL (4.0-5.20) Hemoglobin 13.9 g/dL (12.2-16.2) Hematocrit 41.9 % (36.0-46.0) Mean Corpuscular Volume 89.7 fL (80.0-100.0) Mean Corpuscular Hemoglobin 29.8 pg (28.0-32.0) Mean Corpuscular Hemoglobin Concent 33.2 g/dL (32.0-36.0) Red Cell Distribution Width 13.7 % (11.8-14.3) Platelet Count 182 10^3/uL (140-450) Mean Platelet Volume 11.0 fL (6.9-10.8) Neutrophils (%) (Auto) 72.0 % (37.0-80.0) Lymphocytes (%) (Auto) 19.0 % (10.0-50.0) Monocytes (%) (Auto) 7.9 % (0.0-12.0) Eosinophils (%) (Auto) 0.6 % (0.0-7.0) Basophils (%) (Auto) 0.5 % (0.0-2.0) Neutrophils # (Auto) 5.8 10 ^3/uL (1.6-8.6) Lymphocytes # (Auto) 1.5 10 ^3/uL (0.4-5.4) Monocytes # (Auto) 0.6 10 ^3/uL (0-1.3) Eosinophils # (Auto) 0.1 10 ^3/uL (0-0.8) Basophils # (Auto) 0 10 ^3/uL (0-0.2) Nucleated Red Blood Cells 0.1 % Total Bilirubin 0.5 mg/dL (0.2-1.0) Aspartate Amino Transferase (AST) 13 U/L (13-40) Alanine Aminotransferase (ALT) < 9 U/L (7-40) Alkaline Phosphatase 61 U/L (46-116) Total Protein 7.2 g/dL (5.7-8.2) Albumin 4.5 g/dL (3.2-4.8) Beta HCG, Quantitative 1.8 mIU/mL (1.5-4.2) Plasma/Serum Blood Alcohol 7.9 mg/dL (<10) Urine Color Colorless (Yellow) Urine Clarity Clear (Clear) Urine pH 6.5 (5.0-9.0) Urine Specific [place] 1.007 (1.001-1.035) Urine Protein Negative (Negative) Urine Ketones Negative (Negative) Urine Blood Negative /uL (Negative) Urine Nitrite Negative (Negative) Urine Bilirubin Negative (Negative) Urine Urobilinogen Normal mg/dL (Negative) Urine Leukocyte Esterase Trace /uL (Negative) Urine RBC <1 /hpf (0 - 4) Urine WBC 1 /hpf (0 - 5) Urine Squamous Epithelial Cells Few /hpf (<5) Urine Bacteria Few /hpf (None Seen) Urine Glucose 3+ mg/dL (Normal) Urine Opiates Screen Neg (NEGATIVE) Urine Fentanyl Screen Neg (NEGATIVE) Urine Barbiturates Screen Neg (NEGATIVE) Urine Phencyclidine Screen Neg (NEGATIVE) Urine Amphetamines Screen Neg (NEGATIVE) Urine Benzodiazepines Screen Neg (NEGATIVE) Urine Cocaine Screen Neg (NEGATIVE) Urine Cannabinoids Screen Neg (NEGATIVE) Other Laboratory Tests 08/31/24 06:33 08/30/24 19:40 Brief Hx & Hospital Course: History of Present Illness 28-year-old female presents for evaluation of altered mental status. Patient initially presented to urgent care with complaints of having a cold x2 days. Per the patient's father patient began hyperventilating and her eyes rolled back. Patient became unresponsive. On the feel patient's blood sugar was noted to be 49. Currently the patient is alert oriented x3 that is slow to respond. Denies headache or blurred vision. No unilateral weakness. No shortness a breath. No other acute complaints reported. Course of hospitalization: After further interview of the patient, and reveals that she was had issues with questionable fainting episodes in the past. Patient also reports that her heart rate felt like it was beating fast prior to coming to the hospital. She denies having any previous cardiac workup. Neurology consultation was obtained with MRI of the brain as well as CT scan being negative for any acute pathology. Discussion was made with neurologist Dr. Sawant who states that her episodes leading to hospitalization is not neurologic. Cardiology consultation has been obtained. Echocardiogram was performed. Patient was placed on residential monitor with the patient noted to have periods of tachycardia with short ambulation. Patient denies any palpitations while in the hospital. Given the patient's age, negative workup while in the hospital, he was more than likely the patient has tachyarrhythmias that has not been detected on previous workups. She was recommended to follow up with her PCP and obtain referral for Cardiology to obtain outpatient heart event monitor. Discussion was made with Cardiology who agrees. This was also discussed with the patient's mother who is a registered nurse. All questions answered. Physical examination General: Alert and Oriented x3. No acute distress. Well-nourished. Eyes: EOMI. Anicteric. HENT: Moist mucous membranes. Lungs: Clear to auscultation bilaterally. No accessory muscle use. Cardiovascular: Regular rate and rhythm. No murmur. No JVD. Abdomen: Soft, non-tender and non-distended. No palpable masses. Extremities: No edema. Non-tender. Skin: No rashes or lesions. Warm. Neurologic: No focal neurological deficits. CN II-XII grossly intact, but not individually tested. Psychiatric: Cooperative. Appropriate mood and affect. Total time spent with patient discussing and formulating plan of care: 35 minutes. This medical document was created using an electronic medical record system with [employer] dictation system. Although this document has been carefully reviewed, there may still be some phonetic and typographical errors. These areas are purely typographical due to imperfections of the software programs, and do not reflect any compromise in the patient's medical care. Consults/Reason for consult Neurology: Questionable seizure activity Cardiology: Syncopal episode, probable cardiac related Condition at Discharge: Fair Final Diagnosis/Problems List Syncope, secondary to probable atrial tachycardia as well as hyponatremia Secondary Diagnosis: -ruled out seizure activity -probable syncope with collapse -rule out cardiac dysrhythmia -hypoglycemia -metabolic encephalopathy secondary to syncope Discharge Disposition: Home Discharge Instruct/Medications Diet: Regular Activity: No Restrictions, As Tolerated Follow Up/Referral: PCP in 1-2 weeks Recommend to obtain referral to auto air conditioning mechanic for assessment of home event monitor 36 Discharge Statement: "Patient was advised to return to the ER or call 911 if any headaches, dizziness, shortness of breath, chest pain, abdominal pain, bleeding, fevers, or worsening of medical condition. Patient was counseled about treatment plan, medications, possible side effects, patientverbalized understanding. All questions were answered to the best of my ability. This discharge took greater then 30 minutes in planning, reviewing documentation, counseling the patient, and discussing with other team members." ASSESSMENT ASSESSMENT Assessment Syncope, secondary to probable atrial tachycardia as well as hyponatremia Date of Service: Sep 01, 2024 Billing Provider: MARIALUISA DOMINGO NP Common Visit Codes: 58573-XPR/OBS DISCH DAY >30min MARIALUISA DOMINGO NP Sep 01, 2024 11:51
== END 2024-09-01 14:35 | disposition home or self-care (01) | DRG 640 ==
LOC: EDBD 18:19 → ER 18:23 → OVERFLOW 21:55 → WEST WING 23:54 → TELE-WESTW 08-31 15:32
PROVIDERS: ADMIT Nurse Practitioner; ATTEND Nurse Practitioner Acute Care
DX: E87.1 Hypo-osmolality and hyponatremia (principal); G93.41 Metabolic encephalopathy; I47.19 Other supraventricular tachycardia; E87.6 Hypokalemia; E16.2 Hypoglycemia, unspecified; J45.909 Unspecified asthma, uncomplicated; I49.9 Cardiac arrhythmia, unspecified; Z83.3 Family history of diabetes mellitus; Z82.49 Family history of ischemic heart disease and other diseases of the circulatory system
CPT/HCPCS: 36415; 70450; 70551; 71045; 80048; 80053; 80307; 80320; 81001; 82962; 84443; 84702; 85025; 93306; 96365; 96375; 99291; G0378